=== PATIENT | female | born 1980 | race Caucasian/White ===

== ENCOUNTER 2021-01-06 14:48 | Emergency (ER) | payer MEDICAID ==
[~2021-01-06] VITALS: Ht 165.1 cm; Wt 93.0 kg
[2021-01-06 14:53] VITALS: BP 156/94
[2021-01-06] MEDS ORDERED: ONDANSETRON 4 MG ODT PO ONE (15:30)
[2021-01-06] MEDS ORDERED: KETOROLAC 30 MG/ML VIAL IM ONE (15:30)
[2021-01-06] MEDS ORDERED: methocarbamoL 500 MG TAB PO SCH (15:30)
[2021-01-06] MEDS ORDERED: METH-1681 PO (16:21)
[2021-01-06] MEDS ORDERED: IBUP-2213 PO (16:21)
[2021-01-06] MEDS ORDERED: NAPR-54 PO (16:41)
== END 2021-01-06 16:38 | disposition home or self-care (01) ==
LOC: MED 14:48
DX: S06.0X0A Concussion without loss of consciousness, initial encounter (principal); S16.1XXA Strain of muscle, fascia and tendon at neck level, initial encounter; M54.6 Pain in thoracic spine; M25.521 Pain in right elbow; R11.2 Nausea with vomiting, unspecified; Z79.1 Long term (current) use of non-steroidal anti-inflammatories (NSAID); Z79.899 Other long term (current) drug therapy; Z90.49 Acquired absence of other specified parts of digestive tract; W20.8XXA Other cause of strike by thrown, projected or falling object, initial encounter; Y93.89 Activity, other specified; Y92.89 Other specified places as the place of occurrence of the external cause; Y99.0 Civilian activity done for income or pay
CPT/HCPCS: 73080; 96372; 99283; J1885; Q0092; Q0162